=== PATIENT | female | born 1950 | race Caucasian/White ===

== ENCOUNTER → 2017-07-12 | Outpatient (CLI) | payer MEDICARE ==
[~2017-07-12] MED LIST: CETI-176 PO; DOXY40CP4 PO; FEXO-67 PO; FLU45SYR25 IM ONLY; FLUT16SP19 NS; LEVO-3 PO; LEVO88TA45 PO; MECL25TA9 PO; METR45GE4 TP; MINO100C27 PO; PNEU0.5D3 IM; SIMV-49 PO; SIMV5TAB60 PO; ZOLP-1 PO; ZOLP-358 PO
[2017-07-12 09:35] LABS: PLATELET COUNT, AUTOMATED 227 K/uL (150-450)
[2017-07-12 09:48] LABS: LDL CHOLESTEROL 75 mg/dl
== END ==
LOC: LAB 08:55
PROVIDERS: ATTEND Internal Medicine
DX: E78.5 Hyperlipidemia, unspecified (principal); D64.9 Anemia, unspecified; N18.3 Chronic kidney disease, stage 3 (moderate); E11.3293 Type 2 diabetes mellitus with mild nonproliferative diabetic retinopathy without macular edema, bilateral; E03.9 Hypothyroidism, unspecified
CPT/HCPCS: 36415; 82040; 82247; 82310; 82374; 82435; 82465; 82565; 82947; 83036; 83718; 84075; 84132; 84155; 84295; 84443; 84450; 84460; 84478; 84520; 85025

== ENCOUNTER → 2017-11-27 | Outpatient (CLI) | payer MEDICARE ==
[~2017-11-27] MED LIST changes: +TRAZ-156 PO
[2017-11-27 09:51] LABS: PLATELET COUNT, AUTOMATED 231 K/uL (150-450)
[2017-11-27 10:03] LABS: LDL CHOLESTEROL 73 mg/dl
== END ==
LOC: LAB 09:33
PROVIDERS: ATTEND Internal Medicine
DX: E78.5 Hyperlipidemia, unspecified (principal); E03.9 Hypothyroidism, unspecified; R73.9 Hyperglycemia, unspecified; N18.3 Chronic kidney disease, stage 3 (moderate); D64.9 Anemia, unspecified
CPT/HCPCS: 36415; 81001; 82040; 82247; 82310; 82374; 82435; 82465; 82565; 82947; 83036; 83718; 84075; 84132; 84155; 84295; 84443; 84450; 84460; 84478; 84520; 85025

== ENCOUNTER → 2018-11-24 | Outpatient (CLI) | payer MEDICARE ==
[~2018-11-24] MED LIST changes: +AMOX-559 PO; -SIMV5TAB60 PO; +SIMV5TAB69 PO; -TRAZ-156 PO; +TRAZ50TA52 PO
[2018-11-24 09:48] LABS: PLATELET COUNT, AUTOMATED 243 K/uL (150-450)
[2018-11-24 10:01] LABS: LDL CHOLESTEROL 89 mg/dl
== END ==
LOC: LAB 09:29
PROVIDERS: ATTEND Internal Medicine
DX: R73.01 Impaired fasting glucose (principal); E78.5 Hyperlipidemia, unspecified; E03.9 Hypothyroidism, unspecified; L71.9 Rosacea, unspecified
CPT/HCPCS: 36415; 81001; 82040; 82247; 82310; 82374; 82435; 82465; 82565; 82947; 83036; 83718; 84075; 84132; 84155; 84295; 84439; 84443; 84450; 84460; 84478; 84520; 85025